=== PATIENT | female | born 1990 | race Caucasian/White ===

== ENCOUNTER 2022-01-02 16:47 | Emergency (ER) | payer BC, SELFPAY ==
--- NOTE | ~2022-01-02 | XR_ITS ---
EXAMINATION: XR foot RT min 3V DATE: 01/02/2022 17:13 INDICATION: Lateral right foot pain TECHNIQUE: Dorsoplantar, two oblique and lateral views of the right foot were obtained. COMPARISON: None. FINDINGS: Alignment is normal. No fracture. Joint spaces are normal. Soft tissues are unremarkable. IMPRESSION: 1. Negative right foot radiographs. Reviewed, dictated and finalized at location A.
--- NOTE | 2022-01-02 16:49 | ED.LOWEXIN ---
HPI - Extremity Injury (Lower) General Chief Complaint: Extremity Injury, Lower Stated Complaint: INJURED R FOOT Time Seen by Provider: 01/02/22 16:49 Source: patient and RN notes reviewed History of Present Illness HPI Narrative: Patient is a 31-year-old female who presents the urgent care with complaints of right foot pain. Patient states that she went for a long 6 mile walk on Thursday and has had continual on and off pain. Patient states that she has been Harry wrapping it, elevating and using ice without much improvement. Patient states this was her first long walk of the summer on the bike trail. Denies of any known fall or injury. No other acute complaints. No acute distress noted. Patient aware of the plan of care. Some parts of this dictation were generated by voice recognition software and may contain typographical and/or grammatical inaccuracies. Related Data Home Medications Medication Instructions Recorded Confirmed levonorgestrel-ethinyl estradiol 1 tablet PO DAILY 01/02/22 01/02/22 0.1 mg-20 mcg tablet (Sronyx) metoprolol succinate 25 mg 0.5 tablet PO DAILY 01/02/22 01/02/22 tablet,extended release 24 hr multivitamin 1 tablet PO DAILY 01/02/22 01/02/22 Allergies Allergy/AdvReac Type Severity Reaction Status Date / Time Penicillins Allergy Hives Verified 01/02/22 16:54 Review of Systems Review of Systems: CONSTITUTIONAL: Denies fever, chills, or sweats. EYES: Denies visual changes, redness, or discharge. ENT: Denies rhinorrhea, congestion, sore throat, or otalgia. CARDIOVASCULAR: Denies chest pain, palpitations, or edema. RESPIRATORY: Denies cough or dyspnea. GASTROINTESTINAL: Denies abdominal pain, nausea, vomiting, or diarrhea. GENITOURINARY: Denies dysuria or hematuria. SKIN: Denies rash or itching. MUSCULOSKELETAL: Reports of right foot pain NEUROLOGIC: Denies headache, numbness, or weakness. All other systems reviewed are negative, except as documented in HPI. PMFSH Comments At the time of my signature, I reviewed and agree with the nursing past medical, surgical, social, and family history. There is no relevant family history pertinent to the patient complaint. Exam Narrative: GENERAL: This is a well-nourished, well-developed patient, in no apparent distress. HEAD: normocephalic, atraumatic. EYES: PERRL. Sclera clear/white. Vision is grossly intact. EARS: External ears normal NOSE: External nose normal with no obvious nasal discharge, nares without redness, no rhinorrhea. THROAT: Mucous membranes moist NECK: Neck supple CARDIOVASCULAR: Regular rate and rhythm without murmurs, gallops, or rubs. RESPIRATORY: Clear to auscultation. Breath sounds equal bilaterally. No wheezes, rales, or rhonchi. SKIN: warm, intact with no suspicious lesions or rash, good texture and turgor. NEURO: awake, alert, and oriented to person, place and time. There were no obvious focal neurologic abnormalities. EXTREMITIES: No obvious erythema, edema or deformity noted to the right lower extremity. Positive strong right pedal pulse with capillary refill less than 2 seconds. Range of motion right lower extremity within normal limits with moderate exacerbated pain on weightbearing/ambulation. Course Course Level of Care: Express Care Visit Vital Signs Vital signs: Vital Signs Temperature 99.1 F 01/02/22 16:59 Pulse Rate 75 01/02/22 16:59 Respiratory Rate 20 01/02/22 16:59 Blood Pressure 128/86 01/02/22 16:59 Pulse Oximetry 100 01/02/22 16:59 Oxygen Delivery Room Air 01/02/22 16:59 Temperature 99.1 F 01/02/22 16:59 Pulse Rate 75 01/02/22 16:59 Respiratory Rate 20 01/02/22 16:59 Blood Pressure 128/86 01/02/22 16:59 Pulse Oximetry 100 01/02/22 16:59 Oxygen Delivery Room Air 01/02/22 16:59 Reviewed MDM - Extremity Injury (Lower) MDM Narrative Medical decision making narrative: Reviewed x-ray results with the patient. She is aware that there is no fracture or
[2022-01-02 16:59] VITALS: BP 128/86; PULSE 75; RESP 20; TEMP 37.3; O2SAT 100
== END 2022-01-02 17:32 | disposition home or self-care (01) ==
PROVIDERS: Emergency Provider Nurse Practitioner Family; PCP Family Medicine
DX: S93.601A Unspecified sprain of right foot, initial encounter (principal); X50.3XXA Overexertion from repetitive movements, initial encounter; Y93.01 Activity, walking, marching and hiking; I48.91 Unspecified atrial fibrillation
CPT/HCPCS: 73630; 99213; G0463

== ENCOUNTER 2023-07-16 08:39 | Emergency (ER) | payer BC, SELFPAY ==
--- NOTE | ~2023-07-16 | XR_ITS ---
[XR ribs LT 2V w CXR 2V ] INDICATION: Left rib pain. Cough. TECHNIQUE: Frontal projection of the upper left ribs, frontal projection of the lower left ribs, obli que projection of all the left ribs, frontal inspiratory chest x-ray for interpretation. FINDINGS: There are no displaced rib fractures identified. There are no soft tissue abnormality see n. The lungs are clear. There is mild scoliosis. IMPRESSION: 1:No acute displaced rib fractures. Reviewed, dictated and finalized at location L. 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
[2023-07-16 08:54] VITALS: BP 125/78; PULSE 74; RESP 16; TEMP 36.6; O2SAT 98
--- NOTE | 2023-07-16 09:08 | ED.URI ---
HPI - URI/Sore Throat General Chief Complaint: Upper Respiratory Infection Stated Complaint: Cough;Side/Rib pain Time Seen by Provider: 07/16/23 09:05 Source: patient Mode of arrival: ambulatory Limitations: no limitations History of Present Illness HPI Narrative: Dyana is a 32-year-old female patient presenting to clinic today with complaints of coughing x2 weeks. She reports the cough is dry she is not able to bring up any phlegm. Reports that after a week of coughing she developed some left-sided rib pain. Noted this morning when she was brushing her teeth in bed floor she felt a pop and felt as though 1 of her ribs moved. Is complaining about lateral rib pain. Pain is worse with coughing, taking deep breaths, and sneezing. She denies any shortness of breath, chills, body aches, or fever MD elicited complaint: cough Related Data Home Medications Medication Instructions Recorded Confirmed levonorgestrel-ethinyl estradiol 1 tablet PO DAILY 01/02/22 07/16/23 0.1 mg-20 mcg tablet (Sronyx) metoprolol succinate 25 mg 0.5 tablet PO DAILY 01/02/22 07/16/23 tablet,extended release 24 hr multivitamin 1 tablet PO DAILY 01/02/22 07/16/23 escitalopram oxalate 20 mg tablet 20 mg DIRECTED 07/16/23 07/16/23 Allergies Allergy/AdvReac Type Severity Reaction Status Date / Time Penicillins Allergy Hives Verified 01/02/22 16:54 Review of Systems Review of Systems: Pertinent positives per HPI. Patient denies any fever, chills, rash, headache, visual changes, dizziness, shortness of breath, palpitations, nausea, vomiting, diarrhea, constipation, abdominal pain, or any urinary issues. PMFSH Comments At the time of my signature, I reviewed and agree with the nursing past medical, surgical, social, and family history. There is no relevant family history pertinent to the patient complaint. Exam Narrative: General: Well-developed, well nourished, in no apparent distress Head: Normocephalic, atraumatic Eyes: Pupils equally round and reactive to light bilaterally, EOM intact, sclera and conjunctive clear, no discharge, lids normal Ears: TMs intact and clear, ear canals clear, no drainage, grossly hearing normal. Nose: Nares patent, no discharge, no inflammation, no sinus tenderness. Mouth: Oral pharynx without lesions or masses, good dentition, MMM. Neck: Supple, trachea midline, no enlargement of anterior or posterior cervical nodes, no thyroid masses or goiter palpable. Chest wall: Even rise and fall of the chest wall with respirations, no bruising or swelling noted to the left lateral ribs, tenderness to palpation over the left lateral ribs Cardio: Regular rate and rhythm, s1 and s2 normal, no murmur appreciated. Resp: Clear to auscultation bilaterally, no rhonchi, rales, wheezing or rubs Course Course Emergency Course: Portions of this record may have been created with voice recognition software. Level of Care: Express Care Visit Vital Signs Vital signs: Vital Signs Temperature 36.6 C 07/16/23 08:54 Pulse Rate 74 07/16/23 08:54 Respiratory Rate 16 07/16/23 08:54 Blood Pressure 125/78 07/16/23 08:54 Pulse Oximetry 98 07/16/23 08:54 Oxygen Delivery Room Air 07/16/23 08:54 Temperature 36.6 C 07/16/23 08:54 Pulse Rate 74 07/16/23 08:54 Respiratory Rate 16 07/16/23 08:54 Blood Pressure 125/78 07/16/23 08:54 Pulse Oximetry 98 07/16/23 08:54 Oxygen Delivery Room Air 07/16/23 08:54 Vital signs reviewed MDM - URI/Sore Throat MDM Narrative Medical decision making narrative: At the time of visit patient is resting comfortably on the exam table. Patient appears to be nontoxic. Chest x-ray with left unilateral ribs was performed. Supportive measures were discussed with the patient and they voiced understanding discharge instructions and agrees to treatment plan. Return precautions reviewed Differential Diagnosis Differential diagnosis: Likely upper respirat
== END 2023-07-16 09:48 | disposition home or self-care (01) ==
PROVIDERS: Emergency Provider Nurse Practitioner Family; PCP Family Medicine
DX: R05.1 Acute cough (principal); R07.81 Pleurodynia; Z79.899 Other long term (current) drug therapy
CPT/HCPCS: 71046; 71100; 99213; G0463

== ENCOUNTER 2024-02-05 08:43 | Outpatient (CLI) | payer OTHER, SELFPAY ==
--- NOTE | ~2024-02-05 | US_ITS ---
Pelvic ultrasound. Clinical History: Pelvic pain Technique: Realtime transvaginal scanning of the pelvis was performed. Color flow Doppler and Doppler spectral analysis were performed. Findings: The uterus is anteverted. The endometrial stripe has a thickness of 2 mm. No focal mass is identified. The right ovary measures 1.5 x 1.8 x 1.2 cm. No significant right ovarian or adnexal mass is seen. The left ovary measures 2.5 x 1.1 x 2.3 cm. No significant left ovarian or adnexal mass is seen. There is no evidence of free fluid in the cul de sac. Impression: No significant abnormality seen. Reviewed, dictated and finalized at location . Impression: No significant abnormality seen.
== END 2024-02-05 08:44 ==
PROVIDERS: PCP Family Medicine; Visit Provider Nurse Practitioner Women's Health
DX: R10.2 Pelvic and perineal pain (principal)
CPT/HCPCS: 76830